=== PATIENT | male | born 1955 | race Caucasian/White ===

== ENCOUNTER 2017-01-15 07:30 | Day surgery (SDC) | payer OTHER ==
[~2017-01-15] VITALS: Ht 185.4 cm; Wt 86.2 kg
--- NOTE | ~2017-01-15 | OR ---
PATIENT'S NAME: SELINA VALIENTE [facility] AGE: 61 Y [address] ROOM: [address] [address] [place] [facility] [place]: 01/15/2017 OR/Procedure Report DISCHARGE DATE: FAMILY PHYSICIAN: Dany Cheung MD ATTENDING PHYSICIAN: Darline Terry SURGEON: Darline Terry MD METER/RELAY CRAFTSMAN: DATE OF PROCEDURE: 01/15/2017 PREOPERATIVE DIAGNOSIS: Benign prostatic hypertrophy with lower urinary tract symptoms. POSTOPERATIVE DIAGNOSIS: Benign prostatic hypertrophy with lower urinary tract symptoms. PROCEDURE PERFORMED: Cystoscopy, transurethral resection of the prostate. ANESTHESIA: Spinal. COMPLICATIONS: None. ESTIMATED BLOOD LOSS: 200 mL. INDICATION FOR PROCEDURE: The patient is a 61-year-old male with BPH with lower urinary tract symptoms, refractory to medical therapy. DETAILS OF PROCEDURE: After informed consent was obtained, the patient was taken to the operating room. A spinal anesthetic was applied, and he was placed in the dorsal lithotomy position. The groin area was prepped and draped in normal sterile fashion. A cystoscope was introduced into the urethra and bladder without difficulty. The patient was noted to have severe lateral lobe enlargement and also median lobe enlargement. The resectoscope was then introduced and resection was begun at the bladder neck to the level of the verumontanum. I continued resecting down to crossing the fibers at the bladder neck. I then started resecting lateral and anterior tissue. The patient had numerous arterial bleeders during the procedure, which made visualization difficult. I continued to resect and fulgurate. I then resected the contralateral side and also continued to fulgurate. The bladder was empty of chips and I continued with further resection. Because of the numerous arterial bleeders, it became difficult to see in spite of my efforts at cauterization. I then replaced the loop with a button and continued to resect and fulgurate. More chips were irrigated out of the bladder. Because of the patient's heavy bleeding, the resection of the prostate was somewhat limited. After I was able to obtain good hemostasis, a 24-[place] 3-way Elias catheter was placed on traction. The patient tolerated this procedure well PATIENT'S NAME: SELINA VALIENTE [facility] AGE: 61 Y [address] ROOM: [address] [address] [place] [facility] [place]: 01/15/2017 OR/Procedure Report DISCHARGE DATE: FAMILY PHYSICIAN: Dany Cheung MD ATTENDING PHYSICIAN: Darline Terry and was transferred to recovery room in good condition. MD NATASHA THOMAS/modl /[id number] CC: Dany Cheung MD d: 01/15/17 2348 t: 02/05/17 1915, OPERATIVE SUMMARY
[~2017-01-15 07:30] MED LIST: FLOMAX0.4 MG PO; LYSINE500 MG PO; THERA-VITE W/ B1 TAB PO; VITAMIN D-32000 UNI1 PO
[2017-01-15 07:57] LABS: BASOPHIL % 0.4 %; EOSINOPHIL # 0.1 K/uL (0.0-0.5); EOSINOPHIL % 2.2 %; HEMATOCRIT 51.9 % (37.0-53.0); HEMOGLOBIN 17.7 g/dL (11.0-16.0); IMMATURE GRANULOCYTE % 0.2 %; LYMPHOCYTE % 40.3 %; MCH 29.4 pg (27.0-34.0); MCHC 34.1 gm/dL (32.0-36.5); MCV 86.1 fl (83.0-98.0); MONOCYTE # 0.5 K/uL (0.0-1.0); MONOCYTE % 9.4 %; MPV 9.2 fl (9.4-12.4); NEUTROPHIL # (ANC) 2.3 K/uL (1.4-9.0); NEUTROPHIL % 47.5 %; NRBC % 0 /100WBC (0-0.00); PLATELET COUNT 268 K/uL (150-450); RBC 6.03 M/uL (3.50-5.50); RDW-CV 13.7 % (11.9-14.6); WBC 4.9 K/uL (4.0-11.0)
[2017-01-15 08:12] LABS: ALBUMIN 3.6 gm/dL (3.5-5.0); ANION GAP 10.2 (10.0-19.0); CALCIUM 8.8 mg/dL (8.5-10.5); CREATININE 1.3 mg/dL (0.6-1.3); POTASSIUM 4.2 mMol/L (3.7-5.1); TOTAL PROTEIN 6.9 g/dL (6.0-8.4)
[2017-01-16 05:21] LABS: BASOPHIL % 0.2 %; EOSINOPHIL # 0.1 K/uL (0.0-0.5); EOSINOPHIL % 0.8 %; HEMATOCRIT 49.2 % (37.0-53.0); HEMOGLOBIN 16.9 g/dL (11.0-16.0); IMMATURE GRANULOCYTE % 0.3 %; LYMPHOCYTE # 1.5 K/uL (0.8-4.0); LYMPHOCYTE % 16.4 %; MCH 29.5 pg (27.0-34.0); MCHC 34.3 gm/dL (32.0-36.5); MONOCYTE # 0.6 K/uL (0.0-1.0); MONOCYTE % 6.4 %; MPV 9.8 fl (9.4-12.4); NEUTROPHIL # (ANC) 6.9 K/uL (1.4-9.0); NEUTROPHIL % 75.9 %; NRBC % 0 /100WBC (0-0.00); PLATELET COUNT 247 K/uL (150-450); RBC 5.72 M/uL (3.50-5.50); RDW-CV 13.8 % (11.9-14.6); WBC 9.2 K/uL (4.0-11.0)
[2017-01-16 05:37] LABS: ALBUMIN 3.1 gm/dL (3.5-5.0); ANION GAP 12.9 (10.0-19.0); BLOOD UREA NITROGEN 11 mg/dL (6-24); CALCIUM 8.5 mg/dL (8.5-10.5); CHLORIDE 107 mMol/L (96-110); CO2 25 mMol/L (22-32); ESTIMATED GFR (MDRD EQUATION) > 60; POTASSIUM 3.9 mMol/L (3.7-5.1); SODIUM 141 mMol/L (135-145)
[2017-01-16] MEDS ORDERED: TYLENOL WITH C1 EACH PO (14:23)
[2017-01-16] MEDS ORDERED: PROSCAR5 MG PO (14:25)
[2017-01-16] MEDS ORDERED: LEVAQUIN500 MG PO (14:27)
== END 2017-01-16 15:35 | disposition disaster alternative care site (69) ==
LOC: GMSU 07:30 → GSDC 07:30 → GPOC 09:00 → GMSU 16:04 → GSDC 01-16 15:35
PROVIDERS: Urology
PROC: 0VT08ZZ Resection of Prostate, Via Natural or Artificial Opening Endoscopic (ICD-10-PCS; principal; 2017-01-15)
DX: N40.0 Benign prostatic hyperplasia without lower urinary tract symptoms (principal); Z98.890 Other specified postprocedural states
CPT/HCPCS: J1956; J2001; J7030